=== PATIENT | female | born 1985 | race Two or more races ===

== ENCOUNTER 2017-02-15 23:05 | Outpatient (CLI) | payer BC ==
[~2017-02-15] VITALS: Ht 160 cm; Wt 76.6 kg
[~2017-02-15 23:05] MED LIST: CIPR500T4 PO; DOCU-144 PO; HYDR-3498 PO; HYDR-906 PO; METR500T PO
[2017-02-15 23:33] VITALS: BP 122/81; PULSE 82; RESP 18; Ht 160 cm; Wt 76.6 kg
[2017-02-15] MEDS ORDERED: PRENAT PO (23:35)
[2017-02-15] MEDS ORDERED: SYN75 PO (23:35)
[2017-02-16] MEDS ORDERED: BISACODYL 10 MG SUPP PR ONE
--- NOTE | 2017-02-16 01:32 | TRIAGE ---
OB Triage Datetime Report Generated by CPN: 02/16/2017 01:32 Datetime: 02/16/2017 00:55 Stage of : OB Triage Datetime: 02/16/2017 00:00 Stage of : OB Triage Temperature Route: Oral Labor Evaluation Frequency: 0 Monitor Mode: External Resting Tone [place]: Relaxed Heart Rate FHR Baseline Rate: 140 Monitor Mode: External US Variability: Moderate 6-25 bpm Accelerations: 10X10 Decelerations: None Category: Category I Pain Assessment Pain Presence: None/Denies Datetime: 02/15/2017 23:36 Time of Arrival: 02/15/2017 23:00 EGA: 21.6 Arrived By: Wheelchair Arrived From: Home Chief Complaint: LT. ABD PAIN FOR LAST 4 HRS Movement: Present Rupture of Membranes: Denies Vaginal Discharge: Denies Additional Patient Complaints: ON PUTTING ON MONITOR, STATED NO MORE PAIN, CAN GO HOME, HAS BOWEL PROBLEMS FOR YEARS WITH CONSTIPATION , STATED IT FEELS SAME PAIN CONSTPATION Time Provider Notified: 02/15/2017 23:50 Provider Notified: AYALON Datetime: 02/15/2017 23:30 Assessment Type: Triage Maternal Assessment Level of Consciousness: Fully Conscious DTR's/Clonus: DTRs 2+; No Clonus Headache: Denies Blurred Vision: No Respiratory Effort: Unlabored; Regular Rhythm; Equal Expansion Breath Sounds, Left: Clear and Equal Breath Sounds, Right: Clear and Equal Nausea/Vomiting: Denies RUQ Epigastric Pain: Denies Lower Extremities Edema: Bilateral Lower Extremities Upper Extremities Edema: None Facial Edema: None Fall Risk Assessment History of Falling: (0) No Secondary Diagnosis: (0) No Ambulatory Aid: (0) Bedrest/Nurse Assist IV Therapy: (0) No Gait: (0) Normal/Bedrest/Immobile Mental Status: (0) Oriented to Own Ability Fall Score: 0 Fall Risk Score Definition: No Risk: No action required
--- NOTE | 2017-02-16 01:43 | PN ---
Triage Information Date/Time Weeks of Gestation at 21+ wks ga presents with constipation Patient reports positive movement : 3 Para: 2 Diabetes: none Hypertention: none Additional information Patient with chronic constipation Objective Vital Signs Date Time Temp Pulse Resp B/P Pulse Ox O2 Delivery O2 Flow Rate FiO2 02/15/17 23:33 98.2 82 18 122/81 Room Air Heart Rate: 140's Heart Rate Comments positive accels, no decels Contractions: None Assessment/Plan 21+ wks ga with constipation patient was instructed to take stool softeners She refused a Dulcolax suppository patient to follow up with her obgyn tomorrow morning LISA VILLEDA MD Feb 16, 2017 01:43
== END 2017-02-16 01:24 | disposition home or self-care (01) ==
LOC: L-D 23:05 → OBT 23:05
PROVIDERS: ATTEND Obstetrics & Gynecology
DX: O26.892 Other specified pregnancy related conditions, second trimester (principal); K59.00 Constipation, unspecified; Z3A.21 21 weeks gestation of pregnancy
CPT/HCPCS: G0463

== ENCOUNTER 2017-07-29 15:34 | Emergency (ER) | payer BC ==
[~2017-07-29] VITALS: Ht 157.5 cm; Wt 65.0 kg
[~2017-07-29 15:34] MED LIST changes: -CIPR500T4 PO; -HYDR-3498 PO; -HYDR-906 PO; -METR500T PO; +PRENAT PO; +SYN75 PO
[2017-07-29 15:36] VITALS: Ht 157.5 cm; Wt 65.0 kg
[2017-07-29] MEDS ORDERED: ONDANSETRON 4 MG INJ IV STA (15:57)
[2017-07-29] MEDS ORDERED: HYDROmorphONE 1 MG/ML SYG IV STA (15:57)
[2017-07-29 16:22] LABS: BASOPHILS % 0.2 % (0.0-2.0); EOSINOPHILS # 0.2 10^3/ul (0.0-0.5); EOSINOPHILS % 3.3 % (0.0-7.0); HEMATOCRIT 37.1 % (37.0-47.0); HEMOGLOBIN 12.3 g/dl (12.0-16.0); LYMPHOCYTES # 2.3 10^3/ul (0.8-2.9); LYMPHOCYTES % 38.8 % (15.0-51.0); MEAN CORPUSCULAR HEMOGLOBIN 29.4 pg (29.0-33.0); MEAN CORPUSCULAR HGB CONC 33.2 g/dl (32.0-37.0); MEAN CORPUSCULAR VOLUME 88.8 fl (82.0-101.0); MEAN PLATELET VOLUME 11.6 fl (7.4-10.4); MONOCYTE # 0.4 10^3/ul (0.3-0.9); MONOCYTES % 7.4 % (0.0-11.0); NEUTROPHILS % 50.1 % (39.0-77.0); PLATELET COUNT 209 10^3/UL (140-415); RED BLOOD COUNT 4.18 10^6/ul (4.20-5.40); RED CELL DISTRIBUTION WIDTH 13.1 % (11.5-14.5)
[2017-07-29 16:44] LABS: ALBUMIN 4.1 g/dl (3.3-4.9); ALBUMIN/GLOBULIN RATIO 1.2; BILIRUBIN,INDIRECT 0.7 mg/dl (0-1.1); BILIRUBIN,TOTAL 0.7 mg/dl (0.2-1.3); CALCIUM 9.1 mg/dl (8.4-10.2); CREATININE 0.85 mg/dl (0.44-1.00); POTASSIUM 4.7 mmol/L (3.5-5.1); TOTAL PROTEIN 7.5 g/dl (6.1-8.1)
[2017-07-29 16:47] LABS: ADD UMIC YES; UR ASCORBIC ACID NEGATIVE (NEGATIVE); UR BACTERIA FEW /HPF (NONE SEEN); UR BILIRUBIN (Dip) NEGATIVE (NEGATIVE); UR BLOOD (Dip) 2+ mg/dL (NEGATIVE); UR CLARITY CLEAR (CLEAR); UR COLOR STRAW (YELLOW); UR GLUCOSE (Dip) NEGATIVE (NEGATIVE); UR KETONES (Dip) NEGATIVE (NEGATIVE); UR LEUKOCYTE ESTERASE (Dip) NEGATIVE Leu/ul (NEGATIVE); UR NITRITE (Dip) NEGATIVE (NEGATIVE); UR RBC 25 /HPF (0-5); UR SPECIFIC GRAVITY (Dip) 1.009 (1.003-1.030); UR TOTAL PROTEIN (Dip) NEGATIVE (NEGATIVE); UR UROBILINOGEN (Dip) NEGATIVE (NEGATIVE)
[2017-07-29] MEDS ORDERED: IOHEXOL 300MG/ML 150 ML BTL ONE (18:06)
[2017-07-29] MEDS ORDERED: SOD CHLORIDE 0.9% 100 ML ONE (18:06)
--- NOTE | 2017-07-29 18:45 | RADRPT ---
PROCEDURE: CT Abdomen and Pelvis with contrast. CLINICAL INDICATION: Left lower quadrant pain with history of diverticulitis TECHNIQUE: CT scan of the abdomen and pelvis with contrast was performed on a multi-detector high- resolution CT scanner. The patient was scanned following the uncomplicated intravenous administrati on of 100 cc of Omnipaque 300. Coronal and sagittal reformatted images were obtained from the axial source images. Images were reviewed on a high-resolution PACS workstation. The total exam CTDI equa ls 7.1 mGy and the total exam DLP equals 391 mGy-cm. DICOM images are available. One or more of the following dose reduction techniques were utilized: 1.) Automated exposure control 2.) Adjustment of the mA +/- kV according to patient's size 3.) Use of iterative reconstruction technique. COMPARISON: June 24, 2016 FINDINGS: Limited evaluation of the lung bases are clear. No pleural effusions. The liver, spleen, bilateral adrenal glands, gallbladder, and pancreas are normal-appearing. Portal vein is patent. No biliary dilatation. The bilateral kidneys are normal-appearing without hydronephrosis nor suspicious renal mass. No neph rolithiasis. The small and large bowel are thin-walled and nondilated without evidence for obstruction. No CT kathia dence for diverticulitis. The appendix is normal. Urinary bladder is grossly unremarkable. A small anterior uterine body fibroid measures approximatel y 14 mm but is better characterized on prior pelvic ultrasounds. No free air, free fluid, mesenteric stranding, nor abdominal pelvic adenopathy by imaging size crite good. Abdominal aorta is normal in course and caliber without dissection or aneurysm. No suspicious osseous lesions. No acute fracture. Stable small wide neck ventral hernia without bowel obstruction. IMPRESSION: No acute intra-abdominal process. No CT evidence for diverticulitis. Normal appendix. Approximately 14 mm anterior uterine body fibroid. Physician Jodi Date Time Electronically viewed and signed by Physician Jodi on 07/29/2017 18:45 ML/
[2017-07-29] MEDS ORDERED: HYDR-906 PO (19:15)
--- NOTE | 2017-07-29 19:19 | ERD ---
ER Documentation Chief Complaint Chief Complaint pt bib self with c/o left sided abd pain 06/03 HPI This is a 32-year-old female complains of 45 minutes ago a sudden onset of pain in her left lower quadrant. The pain is sharp and nonradiating. She has no nausea vomiting or diarrhea no fever no back pain no dysuria or hematuria pain is described as sharp. No recent illness no trauma no prior symptoms of this in the past ROS All systems reviewed and are negative except as per history of present illness. Medications Home Meds Active Scripts Hydrocodone/Acetaminophen ([place] 5-325 Tablet) 1 Each Tablet, 1 TAB PO Q6H Y for PAIN, #20 TAB Prov:SANDI JOSEPH DO 07/29/17 Docusate Sodium* (Colace*) 100 Mg Capsule, 100 MG PO TID, #30 CAP Prov:CHRISSIE RUSH PA-C 05/17/16 Reported Medications Multivit/Min/Fol Ac/Iron/Pren* ( S*) 1 Tab Tab, 1 TAB PO DAILY, TAB 02/15/17 Levothyroxine Sodium* (Synthroid*) 75 Mcg Tablet, 75 MCG PO BEFORE BREAKFAST, # 30 TAB 02/15/17 Allergies Allergies: Coded Allergies: No Known Allergy (Unverified , 02/15/17) PMhx/Soc History of Surgery: Yes () Anesthesia Reaction: No Hx Miscellaneous Medical Probl: Yes (diverticulitis) Hx Alcohol Use: No Hx Substance Use: No Hx Tobacco Use: No Smoking Status: Never smoker FmHx Family History: No coronary disease Physical Exam Vitals Vital Signs Date Time Temp Pulse Resp B/P Pulse Ox O2 Delivery O2 Flow Rate FiO2 07/29/17 15:36 98.9 71 16 115/54 98 Physical Exam Const: Well-developed, well-nourished Head: Atraumatic, normocephalic Eyes: Normal Conjunctiva, PERRLA, EOMI, normal sclera, no nystagmus ENT: Normal External Ears, Nose and Mouth, moist mucus membranes. Neck: Full range of motion. No meningismus, no lymphadenopathy. Resp: Clear to auscultation bilaterally, no wheezing, rhonchi, rales Cardio: Regular rate and rhythm, no murmurs, S1 S2 present Abd: Soft, mild left lower quadrant tenderness, non distended. Normal bowel sounds, no guarding or rebound, no pulsitile abdominal masses or bruits Skin: No petechiae or rashes, no ecchymosis , no maculopapular rash Back: No midline or flank tenderness Ext: No cyanosis, or edema, FROM x 4, normal inspection, neurovascularly intact x 4 Neur: Awake and alert, STR 5/5 x 4, sensation intact x 4, no focal findings, cerebellum intact Psych: Normal Mood and Affect Result Diagram: 07/29/17 1615 07/29/17 1615 Results 24 hrs Laboratory Tests Test 07/29/17 16:10 07/29/17 16:15 Urine Color STRAW Urine Clarity CLEAR Urine pH 5.0 Urine Specific [place] 1.009 Urine Ketones NEGATIVEmg/dL Urine Nitrite NEGATIVEmg/dL Urine Bilirubin NEGATIVEmg/dL Urine Urobilinogen NEGATIVEmg/dL Urine Leukocyte Esterase NEGATIVELeu/ul Urine Microscopic RBC 25/HPF Urine Microscopic WBC 0/HPF Urine Bacteria FEW/HPF Urine Hemoglobin 2+mg/dL Urine Glucose NEGATIVEmg/dL Urine Total Protein NEGATIVEmg/dl White Blood Count 6.010^3/ul Red Blood Count 4.1810^6/ul Hemoglobin 12.3g/dl Hematocrit 37.1% Mean Corpuscular Volume 88.8fl Mean Corpuscular Hemoglobin 29.4pg Mean Corpuscular Hemoglobin Concent 33.2g/dl Red Cell Distribution Width 13.1% Platelet Count 45878^3/UL Mean Platelet Volume 11.6fl Neutrophils % 50.1% Lymphocytes % 38.8% Monocytes % 7.4% Eosinophils % 3.3% Basophils % 0.2% Nucleated Red Blood Cells % 0.0/100WBC Neutrophils # 3.010^3/ul Lymphocytes # 2.310^3/ul Monocytes # 0.410^3/ul Eosinophils # 0.210^3/ul Basophils # 0.010^3/ul Nucleated Red Blood Cells # 0.010^3/ul Sodium Level 144mmol/L Potassium Level 4.7mmol/L Chloride Level 105mmol/L Carbon Dioxide Level 30mmol/L Anion Gap 14 Blood Urea Nitrogen 12mg/dl Creatinine 0.85mg/dl Glucose Level 86mg/dl Calcium Level 9.1mg/dl Total Bilirubin 0.7mg/dl Direct Bilirubin 0.00mg/dl Indirect Bilirubin 0.7mg/dl Aspartate Amino Transf (AST/SGOT) 21IU/L Alanine Aminotransferase (ALT/SGPT) 33IU/L Alkaline Phosphatase 65IU/L Total Protein 7.5g/dl Albumin 4.1g/dl Globulin 3.40g/dl Albumin/Globulin Ratio 1.20 Current Medications Medications (Trade) Dose Ordered Sig/Home Route PRN Reason Start Time Stop Time Status Last Admin Dose Admin Hydromorphone HCl (Dilaudid) 1 mg ONCE STAT IV 07/29/17 15:57 07/29/17 15:58 DC 07/29/17 16:23 Ondansetron HCl (Zofran Inj) 4 mg ONCE STAT IV 07/29/17 15:57 07/29/17 15:58 DC 07/29/17 16:23 IV Flush 10 ml 10 ml STK-MED ONCE .ROUTE 07/29/17 18:06 07/29/17 18:07 DC 07/29/17 18:20 Sodium Chloride (NS) 100 ml @ ud STK-MED ONCE .ROUTE 07/29/17 18:06 07/29/17 18:07 DC 07/29/17 18:20 Iohexol (Omnipaque 300mg/ ml) 150 ml STK-MED ONCE .ROUTE 07/29/17 18:06 07/29/17 18:07 DC 07/29/17 18:20 Procedures/MDM PROCEDURE: CT Abdomen and Pelvis with contrast. CLINICAL INDICATION: Left lower quadrant pain with history of diverticulitis TECHNIQUE: CT scan of the abdomen and pelvis with contrast was performed on a multi-detector high-resolution CT scanner. The patient was scanned following the uncomplicated intravenous administration of 100 cc of Omnipaque 300. Coronal and sagittal reformatted images were obtained from the axial source images. Images were reviewed on a high-resolution PACS workstation. The total exam CTDI equals 7.1 mGy and the total exam DLP equals 391 mGy-cm. DICOM images are available. One or more of the following dose reduction techniques were utilized: 1.) Automated exposure control 2.) Adjustment of the mA +/- kV according to patient's size 3.) Use of iterative reconstruction technique. COMPARISON: June 24, 2016 FINDINGS: Limited evaluation of the lung bases are clear. No pleural effusions. The liver, spleen, bilateral adrenal glands, gallbladder, and pancreas are normal-appearing. Portal vein is patent. No biliary dilatation. The bilateral kidneys are normal-appearing without hydronephrosis nor suspicious renal mass. No nephrolithiasis. The small and large bowel are thin-walled and nondilated without evidence for obstruction. No CT evidence for diverticulitis. The appendix is normal. Urinary bladder is grossly unremarkable. A small anterior uterine body fibroid measures approximately 14 mm but is better characterized on prior pelvic ultrasounds. No free air, free fluid, mesenteric stranding, nor abdominal pelvic adenopathy by imaging size criteria. Abdominal aorta is normal in course and caliber without dissection or aneurysm. No suspicious osseous lesions. No acute fracture. Stable small wide neck ventral hernia without bowel obstruction. IMPRESSION: No acute intra-abdominal process. No CT evidence for diverticulitis. Normal appendix. Approximately 14 mm anterior uterine body fibroid. Physician Jodi Date Time Electronically viewed and signed by Jaylen Martinez Physician on 07/29/2017 18 :45 ML/ CC: SANDI JOSEPH DO Patient has known right anterior abdominal acute process. The patient does have some mild hematuria this based on sudden onset of sharp pain in the left abdominal region could be a small kidney stone that she is passed. Pain is better now. Will discharge home with observation Departure Diagnosis: Primary Impression: Flank pain Condition: Stable Patient Instructions: Flank Pain, Uncertain Cause SADNI JOSEPH DO Jul 29, 2017 19:19
[2017-07-29 19:40] VITALS: BP 126/80; PULSE 89; RESP 16; TEMP 98.9
== END 2017-07-29 19:41 | disposition home or self-care (01) ==
LOC: FTE 15:34
DX: R10.32 Left lower quadrant pain (principal)
CPT/HCPCS: 36415; 74177; 80053; 81001; 85025; 96374; 96375; J1170; J2405; Q9967; Z7502; Z7610

== ENCOUNTER 2017-10-11 09:57 | Emergency (ER) | END 2017-10-11 14:53 | disposition home or self-care (01) ==

== ENCOUNTER 2018-01-03 10:20 | Day surgery (SDC) | END 2018-01-03 13:33 | disposition home or self-care (01) ==